=== PATIENT | female | born 1960 | race Native Hawaiian/Other Pacific Islander ===

== ENCOUNTER 2016-09-06 18:44 | Emergency (ER) | payer OTHER ==
[~2016-09-06] VITALS: Ht 152.4 cm; Wt 61.1 kg
[~2016-09-06 18:44] MED LIST: DOXY100T PO; GLUCTAB PO; ROSU40 PO
[2016-09-06 18:48] VITALS: BP 134/95; PULSE 86; RESP 16; TEMP 97.6; O2SAT 96
[2016-09-06] MEDS ORDERED: PROPARACAINE HCL 0.5% OPHT SOLN 15 ML BTL RIGHT EYE ONE (19:00)
[2016-09-06] MEDS ORDERED: OMEG1CAP53 PO (19:04)
[2016-09-06] MEDS ORDERED: METF500T PO (19:04)
[2016-09-06] MEDS ORDERED: ROSU40 PO (19:04)
[2016-09-06] MEDS ORDERED: TIMO0.5S30 RIGHT EYE (19:06)
--- NOTE | 2016-09-06 19:07 | PD ---
HPI . right eye possible FB Chief Complaint: Eye Problems/Injury Time Seen by Provider: 19:07 Travel History International Travel<30 days: No Contact w/Intl Traveler<30days: No Traveled to known affect area: No History of Present Illness HPI 55 yr old female here with c/o right eye possible FB. 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 She reports some pain. She is able to see. She feels like something may be stuck in there. PFSH Past Medical History Cancer: No High Cholesterol: Yes Diabetes: Yes Patient Takes Glucophage: Yes (09-05-16 1900) Diminished Hearing: No Endocrine: Yes Genitourinary: No Hypertension: Yes Immune Disorder: No Psychiatric: No Reproductive: No Respiratory: No Immunizations Current: Yes Tetanus Vaccination: < 5 Years Influenza Vaccination: Yes Past Surgical History Eye Surgery: Yes (GROWTH IN EYE REMOVED) Gynecologic Surgery: Yes (HYSTERECTOMY) Hysterectomy: Yes Other Surgery: Yes Social History Alcohol Use: Yes (WINE OCC) Tobacco Use: No Substance Use: No Allergies-Medications (Allergen,Severity, Reaction): Coded Allergies: No Known Allergies (Verified , 09/06/16) Reported Meds & Prescriptions Reported Meds & Active Scripts Active Erythromycin Opth Oint 5 Mg/Gm Oint 1 Applic RIGHT EYE BID 5 Days Reported Timolol Opth Drops 0.5 % Soln 1 Drop RIGHT EYE BID Lovaza ([id number] Ethyl Esters) 1 Gm Cap 4 Gm PO DAILY Metformin (Metformin HCl) 500 Mg Tab 500 Mg PO DAILY With a meal Crestor (Rosuvastatin Calcium) 40 Mg Tab 40 Mg PO DAILY Review of Systems General / Constitutional: No: Fever Eyes: Positive: Redness, Foreign Body Sensation, Pain, Tearing, No: Visual changes HENT: No: Headaches Cardiovascular: No: Chest Pain or Discomfort Respiratory: No: Shortness of Breath Gastrointestinal: No: Abdominal Pain Genitourinary: No: Dysuria Musculoskeletal: No: Pain Skin: No Rash Neurologic: No: Weakness Psychiatric: No: Depression Endocrine: No: Polydipsia Hematologic/Lymphatic: No: Easy Bruising Physical Exam Narrative GENERAL: AAO x 3, no acute distress, Well-nourished, well-developed patient. SKIN: Warm and dry. No visible rashes or bruising. HEAD: Normocephalic and atraumatic. EYES: No scleral icterus. No injection, + tearing, ++ erythema of right eye, no fb on visual inspection. ENT: No nasal drainage noted. Mucous membranes pink. Airway patent. NECK: Supple, trachea midline. No JVD. CARDIOVASCULAR: Regular rate and rhythm without murmurs, gallops, or rubs. RESPIRATORY: Breath sounds equal bilaterally. No accessory muscle use. No rhonchi or rales. GASTROINTESTINAL: visual inspection normal EXTREMITIES: No cyanosis or edema. BACK: No obvious deformity. No CVA tenderness. NEURO: CN II-12 PSYCH: AAO x 3, normal affect. Data Data Last Documented VS Vital Signs Date Time Temp Pulse Resp B/P Pulse Ox O2 Delivery O2 Flow Rate FiO2 09/06/16 18:48 97.6 86 16 134/95 96 Orders Proparacaine 0.5% Opth Soln (Alcaine 0.5 (09/06/16 19:00) Eye Irrigation (09/06/16 19:08) MDM Medical Decision Making Medical Screen Exam Complete: Yes Emergency Medical Condition: Yes Medical Record Reviewed: Yes Differential Diagnosis right eye fb, corneal abrasion, less likely retinal detachment Narrative Course 55 yr old female here with FB to right eye. Proparacaine instilled in right eye, visual inspection no fb seen, eye irrigation performed. After irrigation, patient feels better. Eye staining performed + corneal abrasion of right eye. I discussed with patient. Recommend outpatient follow-up with director broadcast on Friday. Erythromycin ophthalmic ointment prescribed. Advised if any sudden loss of vision or eye pain, go to the nearest emergency department. Patient verbalized understanding of instructions, questions were answered, and thanked me for their care. I advised them if their condition worsens, please return to the nearest emergency room for further care. Procedures Procedure Narrative Fluorescein eye staining procedure: proparacaine drops instilled into the right eye Local anesthesia was accomplished. the eye was inspected for any type of obvious foreign body; none seen fluorescein stain was applied to look for corneal abrasion: + right corneal abrasion Diagnosis Primary Impression: Corneal abrasion, right Qualified Code: S05.01XA - Corneal abrasion, right, initial encounter Patient Instructions: General Instructions Additional Instructions: Please follow-up with your director broadcast in the next 2-3 days. If you develop any sudden onset of eye pain or loss of vision, go to the nearest emergency department. Please return to emergency department if your symptoms return or worsen. Follow up with your primary care provider. Take medications as prescribed. Med/Other Pt SpecificInfo: Prescription(s) given Scripts Erythromycin Opth Oint 5 Mg/Gm Oint1 Applic RIGHT EYE BID 5 Days Ref 0 Prov:Lesly Heller DO 09/06/16 Disposition: 01 DISCHARGE HOME Condition: Stable Donna Arroyo Sep 06, 2016 19:07
[2016-09-06] MEDS ORDERED: ERYTOIN10 RIGHT EYE (20:12)
== END 2016-09-06 20:22 | disposition home or self-care (01) ==
LOC: PHEFT 18:44
DX: S05.01XA Injury of conjunctiva and corneal abrasion without foreign body, right eye, initial encounter (principal); E11.9 Type 2 diabetes mellitus without complications; I10 Essential (primary) hypertension; E78.00 Pure hypercholesterolemia, unspecified; X58.XXXA Exposure to other specified factors, initial encounter; Y93.89 Activity, other specified; Y92.62 Dock or shipyard as the place of occurrence of the external cause
CPT/HCPCS: 99284

== ENCOUNTER 2017-01-17 04:44 | Emergency (ER) | payer OTHER ==
[~2017-01-17] VITALS: Ht 152.4 cm; Wt 59.4 kg
[~2017-01-17 04:44] MED LIST changes: -DOXY100T PO; +ERYTOIN10 RIGHT EYE; -GLUCTAB PO; +METF500T PO; +OMEG1CAP53 PO; +TIMO0.5S30 RIGHT EYE
[2017-01-17 04:50] VITALS: BP 131/87; PULSE 98; RESP 18; TEMP 99; O2SAT 97
[2017-01-17] MEDS ORDERED: TRAM50TA PO (05:24)
[2017-01-17] MEDS ORDERED: ZOFR4TAB PO (05:24)
[2017-01-17] MEDS ORDERED: METR-1 PO (05:24)
[2017-01-17] MEDS ORDERED: CIPR-9 PO (05:24)
--- NOTE | 2017-01-17 05:24 | PD ---
HPI Chief Complaint: Abdominal Pain Time Seen by Provider: 05:01 Travel History International Travel<30 days: No Contact w/Intl Traveler<30days: No Traveled to known affect area: No History of Present Illness HPI The patient is a 56-year-old female that complains of left lower abdominal pain for 3 days. She had a similar episode of this pain one month ago and a CT scan was done at [facility]. According to the patient, the CT scan was normal. The patient states she just had blood work done at her primary care physician's office and would prefer no blood work be done tonight unless absolutely necessary. The patient's pain is 5/10 and a combination of both sharp and toothache like pain. She denies any fever, chills, nausea, vomiting or diarrhea. She denies any dysuria, frequency or urgency. She still has her gallbladder and appendix. PFSH Past Medical History Cancer: No High Cholesterol: Yes Diabetes: Yes Patient Takes Glucophage: Yes Diminished Hearing: No Endocrine: Yes Genitourinary: No Hypertension: Yes Immune Disorder: No Psychiatric: No Reproductive: No Respiratory: No Immunizations Current: Yes Tetanus Vaccination: < 5 Years Influenza Vaccination: Yes ?: Not Past Surgical History Eye Surgery: Yes (GROWTH IN EYE REMOVED) Gynecologic Surgery: Yes (HYSTERECTOMY) Hysterectomy: Yes Other Surgery: Yes Social History Alcohol Use: Yes (WINE OCC) Tobacco Use: No Substance Use: No Allergies-Medications (Allergen,Severity, Reaction): Coded Allergies: No Known Allergies (Verified Adverse Reaction, Unknown, 01/17/17) Reported Meds & Prescriptions Reported Meds & Active Scripts Active Erythromycin Opth Oint 5 Mg/Gm Oint 1 Applic RIGHT EYE BID 5 Days Reported Timolol Opth Drops 0.5 % Soln 1 Drop RIGHT EYE BID Lovaza ([id number]-[id number] Ethyl Esters) 1 Gm Cap 4 Gm PO DAILY Metformin (Metformin HCl) 500 Mg Tab 500 Mg PO DAILY With a meal Crestor (Rosuvastatin Calcium) 40 Mg Tab 40 Mg PO DAILY Review of Systems Except as stated in HPI: all other systems reviewed are Neg Physical Exam Narrative GENERAL: Well-nourished, well-developed patient in slight apparent distress with her left lower quadrant abdominal discomfort. Her vital signs are normal. SKIN: Focused skin assessment warm/dry. HEAD: Normocephalic. EYES: No scleral icterus. No injection or drainage. NECK: Supple, trachea midline. No JVD or lymphadenopathy. CARDIOVASCULAR: Regular rate and rhythm without murmurs, gallops, or rubs. RESPIRATORY: Breath sounds equal bilaterally. No accessory muscle use. GASTROINTESTINAL: Abdomen soft, with tenderness to direct palpation in the left lower quadrant, nondistended. No guarding or rebound is present. MUSCULOSKELETAL: No cyanosis, or edema. BACK: Nontender without obvious deformity. No CVA tenderness. Data Data Last Documented VS Vital Signs Date Time Temp Pulse Resp B/P (MAP) Pulse Ox O2 Delivery O2 Flow Rate FiO2 01/17/17 04:50 99.0 98 18 131/87 (102) 97 MDM Medical Decision Making Medical Screen Exam Complete: Yes Emergency Medical Condition: Yes Medical Record Reviewed: Yes Differential Diagnosis Diverticulitis, left-sided appendicitis-unlikely, colitis, urinary tract infection-unlikely Narrative Course The patient may have diverticulitis. She has no urinary symptoms. Her abdomen is soft and only slightly tender and a repeat CAT scan and blood work at this time is not necessary. We will give the patient Cipro and Flagyl as well as tramadol for pain and Zofran for nausea. She will follow up with her primary care physician. She is told if she gets worse that she will need to return and we may have to do blood work and a CAT scan. Diagnosis Primary Impression: Diverticulitis large intestine Med/Other Pt SpecificInfo: Prescription(s) given Scripts Ondansetron (Zofran) 4 Mg Tab 4 MG PO Q6HR Y for NAUSEA OR VOMITING, #28 TAB 0 Refills Prov: Patrick Restrepo MD 01/17/17 Tramadol (Tramadol) 50 Mg Tab 50 MG PO Q6H Y for PAIN, #30 TAB 0 Refills Prov: Patrick Restrepo MD 01/17/17 Ciprofloxacin (Cipro) 500 Mg Tab 500 MG PO BID for Infection for 10 Days, #20 TAB 0 Refills Prov: Patrick Restrepo MD 01/17/17 Metronidazole (Flagyl) 500 Mg Tab 500 MG PO TID for Infection, #30 TAB 0 Refills Prov: Patrick Restrepo MD 01/17/17 Disposition: 01 DISCHARGE HOME Condition: Stable Patrick Restrepo MD Jan 17, 2017 05:24
== END 2017-01-17 05:38 | disposition home or self-care (01) ==
LOC: PHED 04:44
DX: K57.32 Diverticulitis of large intestine without perforation or abscess without bleeding (principal); E11.9 Type 2 diabetes mellitus without complications; E78.00 Pure hypercholesterolemia, unspecified; Z79.84 Long term (current) use of oral hypoglycemic drugs
CPT/HCPCS: 99284